=== PATIENT | male | born 2005 | race Caucasian/White ===

== ENCOUNTER 2025-09-11 22:55 | Emergency (ER) | payer OTHER | END 2025-09-12 01:23 | disposition home or self-care (01) | LOC: ERS 22:55 | DX: S50.01XA Contusion of right elbow, initial encounter (principal); S60.211A Contusion of right wrist, initial encounter; V18.2XXA Unspecified pedal cyclist injured in noncollision transport accident in nontraffic accident, initial encounter | CPT/HCPCS: 99283 ==